=== PATIENT | female | born 1945 | race Asian ===

== ENCOUNTER → 2018-12-05 | Outpatient (CLI) | payer MEDICARE, OTHER ==
--- NOTE | 2018-12-08 10:19 | Pulmonary Function Test ---
Pulmonary Function Test Date of Procedure:: 12/08/18 INDICATION:: Cough Referring Provider: Dr. 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
== END ==
LOC: RT 09:14
PROVIDERS: ATTEND Physician Assistant
DX: R05 Cough (principal)
CPT/HCPCS: 94010